=== PATIENT | male | born 1970 | race Caucasian/White ===

== ENCOUNTER 2021-09-04 08:37 | Emergency (ER) | payer MEDICARE, MEDICAID ==
[~2021-09-04] VITALS: Ht 177.8 cm; Wt 87.0 kg
--- NOTE | 2021-09-04 08:45 | ED Lower Extremity ---
General Chief Complaint: Lower Extremity Stated Complaint: RT FOOT INJ Source: patient Exam Limitations: no limitations History of Present Illness Date Seen by Provider: Sep 04, 2021 Time Seen by Provider: 08:41 Initial Comments 50-year-old male with past medical history of CAD with stenting, hypertension, hyperlipidemia, diabetes, CKD coming in due to right big toe pain. Started last night when he was barefoot walking and ran his big toe into a chair leg. I mmediately had severe constant sharp pain. Better with rest and worse with walking on it. Has not taking any medications for it as of yet. He noticed some swelling and so he came in this morning. He is otherwise denying any other acute complaints. Allergies and Home Medications Allergies Coded Allergies: Penicillins (Verified Allergy, Unknown, 09/04/21) acetaminophen (Verified Allergy, Unknown, 09/04/21) hydrocodone (Verified Allergy, Unknown, 09/04/21) sulfamethoxazole (Verified Allergy, Unknown, 09/04/21) tramadol (Verified Allergy, Unknown, 09/04/21) trimethoprim (Verified Allergy, Unknown, 09/04/21) Patient Home Medication List Home Medication List Reviewed: Yes Review of Systems Constitutional: No fever EENTM: No blurred vision Respiratory: No cough, No short of breath Cardiovascular: No chest pain Gastrointestinal: No abdominal pain Genitourinary: no symptoms reported Musculoskeletal: joint pain Skin: no symptoms reported Psychiatric/Neurological: No Symptoms Reported All Other Systems Reviewed Negative Unless Noted: Yes Past Fbdclqv-Hwkcps-Bcwkdd Hx Patient Social History Tobacco Use?: Yes Tobacco type used: Cigarettes Alcohol Use?: Yes Past Medical History Surgeries: Yes Abdominal (Neelima), Cardiac (coronary stents), Gallbladder Coronary Artery Disease, High Cholesterol, Hypertension Stroke Diabetes, Non-Insulin dep Physical Exam Vital Signs Vital Signs - First Documented 09/04/21 08:43 Temp 36.7 Pulse 117 Resp 16 B/P (MAP) 138/103 (115) Pulse Ox 96 O2 Delivery Room Air Capillary Refill : Height, Weight, BMI Height: '" Weight: lbs. oz. kg; BMI Method: General Appearance: WD/WN, no apparent distress HEENT: PERRL/EOMI, normal ENT inspection, pharynx normal Neck: non-tender, full range of motion, supple, normal inspection Cardiovascular: regular rate, rhythm, no edema, no murmur Respiratory: chest non-tender, lungs clear, normal breath sounds, no respiratory distress, no accessory muscle use Gastrointestinal: normal bowel sounds, non tender, soft; No distended, No guarding, No rebound Hips: bilateral hip non-tender, bilateral hip normal inspection, bilateral hip normal range of motion, bilateral hip no evidence of injury Legs: bilateral leg non-tender, bilateral leg normal inspection, bilateral leg normal range of motion, bilateral leg no evidence of injury Knees: bilateral knee non-tender, bilateral knee normal inspection, bilateral knee normal range of motion, bilateral knee no evidence of injury Ankles: bilateral ankle non-tender, bilateral ankle normal inspection, bilateral ankle normal range of motion, bilateral ankle no evidence of injury Feet: left foot non-tender, left foot normal inspection, left foot normal range of motion, left foot no evidence of injury; right foot bone tenderness (maximal tenderness over distal big toe), right foot limited range of motion, right foot pain, right foot soft tissue tenderness, right foot swelling Neurologic/Tendon: normal sensation, normal motor functions Neurologic/Psychiatric: no motor/sensory deficits, alert, normal mood/affect Skin: normal color, warm/dry Lymphatic: no adenopathy Progress/Results/Core Measures Results/Orders My Orders Orders - SAULO RUCKER MD Foot 3 View Right (09/04/21 08:48) Acetaminophen Tablet (Tylenol Tablet) (09/04/21 09:00) Medications Given in ED Current Medications Medications Dose Ordered Sig/Judit Route Start Time Stop Time Status Last Admin Dose Admin Acetaminophen 1,000 mg ONCE ONCE PO 09/04/21 09:00 09/04/21 09:01 09/04/21 08:54 1,000 MG Vital Signs/I&O 09/04/21 08:43 Temp 36.7 Pulse 117 Resp 16 B/P (MAP) 138/103 (115) Pulse Ox 96 O2 Delivery Room Air Progress Progress Note : Progress Note 50-year-old male with above history coming in due to right big toe pain. ABCs were intact and vitals were stable on presentation. Physical exam with some minimal swelling of the distal aspect of the right big toe and tenderness along the distal aspect as well. X-ray ordered to assess for fracture or dislocation. Given Tylenol p.o. for pain control. X-ray interpreted by me showing a fracture of the distal phalanx of the right big toe involving the joint but it is nondisplaced. Given a postop shoe follow- up with orthopedics. He was then discharged home in stable condition with strict return precautions Diagnostic Imaging Diagonstic Imaging: Xray (right foot) Comments X-ray of the right foot ordered and interpreted by me showing a fracture of the distal phalanx of the right big toe involving the joint but is nondisplaced Departure Impression Primary Impression: Fracture of toe Qualified Codes: S92.424A - Nondisplaced fracture of distal phalanx of right great toe, initial encounter for closed fracture Disposition: HOME, SELF-CARE Condition: Stable Departure-Patient Inst. Decision time for Depature: 09:00 Referrals: JAMES GONZALES APRN (PCP) Primary Care Physician [facility] (Family) Primary Care Physician KRISHAN GIL Patient Instructions: Toe Fracture (DC) Add. Discharge Instructions: Your right big toe is broken on the very end near your nail. It is nondisplaced and should heal well. Please follow-up with the orthopedist [facility]. Take Tylenol 1000 mg every 6-8 hours for pain. If you have pain above this you can take the oxycodone. Keep the shoe that we gave you on as this will protect the fracture. Scripts Oxycodone HCl (Oxycodone HCl) 5 Mg Tablet 5 MG PO Q8H PRN for PAIN-SEVERE (8-10) for 3 Days, #9 TAB Prov: SAULO RUCKER MD 09/04/21 SAULO RUCKER MD Sep 04, 2021 08:45
[2021-09-04] MEDS ORDERED: ACETAMINOPHEN 500 MG TAB (TYLENOL) PO ONE (09:00)
[2021-09-04] MEDS ORDERED: OXYC5TAB PO (09:03)
[2021-09-04 09:05] VITALS: BP 138/103
--- NOTE | 2021-09-04 09:12 | Diagnostic Imaging Report ---
EXAM: Right foot radiograph. EXAM DATE: 09/04/2021. COMPARISON: None. HISTORY: Right 1st digit pain after trauma. TECHNIQUE: Three views of the right foot. FINDINGS: There is a nondisplaced fracture along the proximal aspect of the distal 1st digit phalanx that involves the joint space. No other acute fracture, dislocation, or destructive osseous process. The joint spaces are otherwise normal. The soft tissues are normal. IMPRESSION: Nondisplaced fracture of the proximal aspect of the distal 1st digit phalanx. Dictated by: Dictated on workstation # [id number]
== END 2021-09-04 09:05 | disposition home or self-care (01) ==
LOC: ER FS 08:39
DX: S92.424A Nondisplaced fracture of distal phalanx of right great toe, initial encounter for closed fracture (principal); I10 Essential (primary) hypertension; E11.9 Type 2 diabetes mellitus without complications; Z72.0 Tobacco use; Z86.73 Personal history of transient ischemic attack (TIA), and cerebral infarction without residual deficits; W22.8XXA Striking against or struck by other objects, initial encounter
CPT/HCPCS: 73630

== ENCOUNTER 2021-12-24 08:15 | Emergency (ER) | payer MEDICARE, MEDICAID ==
[~2021-12-24] VITALS: Ht 177 cm; Wt 95.0 kg
[~2021-12-24 08:15] MED LIST: OXYC5TAB PO
[2021-12-24 08:30] VITALS: BP 146/86
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
--- NOTE | 2021-12-24 08:56 | Diagnostic Imaging Report ---
INDICATION: Pain. COMPARISON: Imaging of the left foot from this same date. TECHNIQUE: Three radiographs of the left ankle dated 12/24/2021. FINDINGS: No acute fracture or dislocation. No destructive osseous process. The talar dome is unremarkable. The ankle mortise is symmetric. No suspicious radiopaque foreign body. IMPRESSION: No acute osseous abnormality. Dictated by: Dictated on workstation # [id number]
--- NOTE | 2021-12-24 09:13 | Diagnostic Imaging Report ---
Pelvis and left hip at 8:40 INDICATION: Injury, hip pain. Single AP view of the pelvis and AP and lateral views of the left hip were obtained. There are no prior studies for comparison. There is no fracture, dislocation or acute bony abnormality identified. There is a linear lucency extending through the lateral aspect of the left acetabulum. There may be a similar-appearing linear lucency on the right and consequently this finding may merely be secondary to superimposition and not to a fracture. Even so, if clinical concern regarding an acute bony abnormality persists, then CT would be recommended for further study. There is only mild degenerative disease of the hip and sacroiliac joints. The soft tissues are unremarkable. IMPRESSION: 1. The linear lucency overlying the lateral aspect of the left acetabulum may merely be secondary to superimposition as opposed to a nondisplaced fracture. Recommendations as above. 2. There is no acute bony abnormality noted otherwise. Dictated by: Dictated on workstation # [id number]
--- NOTE | 2021-12-24 09:14 | Diagnostic Imaging Report ---
Left foot at 8:50. Indication: Injury, foot pain. 3 views were obtained. There are no prior studies available for comparison. There is no fracture, dislocation or acute bony abnormality evident. The Lisfranc joint seems well maintained. There is no evidence for a calcaneal spur. The soft tissues are unremarkable. Impression: There is no evidence for an acute bony abnormality. Dictated by: Dictated on workstation # [id number]
[2021-12-24] MEDS ORDERED: oxyCODONE/APAP 5/325MG (PERCOCET 5) TABLET PO STA (09:36)
[2021-12-24] MEDS ORDERED: OXYC1TAB11 PO (09:40)
== END 2021-12-24 09:45 | disposition home or self-care (01) ==
LOC: EDUNIT# 08:15 → ER FS 08:17
DX: S93.402A Sprain of unspecified ligament of left ankle, initial encounter (principal); S70.02XA Contusion of left hip, initial encounter; F17.210 Nicotine dependence, cigarettes, uncomplicated; V86.55XA Driver of 3- or 4- wheeled all-terrain vehicle (ATV) injured in nontraffic accident, initial encounter
CPT/HCPCS: 73502; 73610; 73630

== ENCOUNTER 2022-02-25 06:04 | Emergency (ER) | payer MEDICARE, MEDICAID ==
[~2022-02-25] VITALS: Ht 177.8 cm; Wt 90.9 kg
[~2022-02-25 06:04] MED LIST changes: +OXYC1TAB11 PO
[2022-02-25] MEDS ORDERED: KETOROLAC 15 MG/ML VIAL IVP ONE (06:30)
[2022-02-25] MEDS ORDERED: CYCLOBENZAPRINE 10 MG (FLEXERIL) TAB PO STA (06:33)
[2022-02-25] MEDS ORDERED: EMPA25TA (06:42)
[2022-02-25] MEDS ORDERED: OMEP20CA18 (06:42)
[2022-02-25] MEDS ORDERED: AMLO-250 (06:42)
[2022-02-25] MEDS ORDERED: HYDR-3923 (06:42)
[2022-02-25] MEDS ORDERED: VALS80TA31 (06:42)
[2022-02-25] MEDS ORDERED: GABAPENTIN 100 MG (NEURONTIN) CAP PO ONE (06:45)
--- NOTE | 2022-02-25 06:49 | ED Back Pain ---
General Chief Complaint: Back Problems Stated Complaint: LOWER BACK PAIN Nursing Triage Note: Patient arrival to ED via POV and assisted with a wheelchair to ED Overflow room. Patient c/o severe low back pain since 1900 last night leaving him to sleep on a screened in porch for the night. Patient has hx low back pain chronically and used to get shots in back prior to moving to [place]. Pt reports now he has C5-6 issues to see Johan Harris for in . Tried Aleve and "old pain pill I had". Source of Information: Patient Exam Limitations: No Limitations History of Present Illness Date Seen by Provider: February 25, 2022 Time Seen by Provider: 06:15 Initial Comments 51-year-old male with past medical history of diabetes, hypertension, chronic back pain that sees pain management coming in due to low back pain. He was spra joce stuff in the lawn, dropped a 20 gallon bucket off of his 4 [address], tried to pick it up and felt a strain in his left lower back. Has had constant sharp pain in his left lower back since then. Better when he is sitting, worse with walking. Took hydrocodone with Tylenol last night which helped somewhat. He follows with pain management and gets intermittent spinal injections. He is overdue for 1 and says he is going to call them soon. He is otherwise denying any new numbness, weakness, bowel or bladder issues, rash, chest pain, shortness of breath, dysuria, or any other concerns. Allergies and Home Medications Allergies Coded Allergies: Penicillins (Verified Allergy, Unknown, 09/04/21) acetaminophen (Verified Allergy, Unknown, 09/04/21) hydrocodone (Verified Allergy, Unknown, 09/04/21) sulfamethoxazole (Verified Allergy, Unknown, 09/04/21) tramadol (Verified Allergy, Unknown, 09/04/21) trimethoprim (Verified Allergy, Unknown, 09/04/21) Patient Home Medication List Home Medication List Reviewed: Yes Amlodipine Besylate (Amlodipine Besylate) 5 Mg Tablet, (Reported) Entered as Reported by: MEREDITH SHEARER on 02/25/22 0642 Last Action: New Order Cyclobenzaprine HCl (Cyclobenzaprine HCl) 10 Mg Tablet, 10 MG PO BID PRN for SPASMS Prescribed by: SAULO RUCKER on 02/25/22651 Empagliflozin (Jardiance) 25 Mg Tablet, (Reported) Entered as Reported by: MEREDITH SHEARER on 02/25/22641 Last Action: New Order Gabapentin (Gabapentin) 100 Mg Capsule, 100 MG PO Q8H Prescribed by: SAULO RUCKER on 02/25/22651 Hydralazine HCl (Hydralazine HCl) 25 Mg Tablet, (Reported) Entered as Reported by: MEREDITH SHEARER on 02/25/22641 Last Action: New Order Lidocaine (Lidocaine 5% Patch) 5 % Adh..patch, 1 EACH TP Q12H PRN for Neuropathic pain Prescribed by: SAULO RUCKER on 02/25/22651 Omeprazole (Omeprazole) 20 Mg Capsule., (Reported) Entered as Reported by: MEREDITH SHEARER on 02/25/22641 Last Action: New Order Valsartan (Valsartan) 80 Mg Tablet, (Reported) Entered as Reported by: MEREDITH SHEARER on 02/25/22641 Last Action: New Order Discontinued Medications Oxycodone HCl (Oxycodone HCl) 5 Mg Tablet, 5 MG PO Q8H PRN for PAIN-SEVERE (8- 10) Discontinued Reason: Referral/FU Appt-Addtl Prescribed by: SAULO RUCKER on 09/04/21902 Last Action: Discontinued Oxycodone HCl/Acetaminophen (Oxycodone-Acetaminophen 5-325) 1 Each Tablet, 1 EACH PO Q6H PRN for PAIN-SEVERE (8-10) Discontinued Reason: Referral/FU Appt-Addtl Prescribed by: DHARA TELLES on 12/24/21940 Last Action: Discontinued Review of Systems Constitutional: No chills, No fever EENTM: No blurred vision Respiratory: No cough Cardiovascular: No chest pain Gastrointestinal: No abdominal pain Genitourinary: no symptoms reported Musculoskeletal: back pain Skin: no symptoms reported Psychiatric/Neurological: No Symptoms Reported All Other Systems Reviewed Negative Unless Noted: Yes Past Pdjieyq-Hpabun-Wkqqhb Hx Patient Social History Tobacco Use?: Yes Tobacco type used: Cigarettes Smoking Status: Current Everyday Smoker Smokeless Tobacco Frequency: Never a User Use of E-Cig and/or Vaping Faustino: Never a User Substance use?: No Additional substance use comme: Patient reports hx of polysubstance abuse prior to 25 yrs ago Alcohol Use?: Yes Alcohol type: Hard Liquor Alcohol Frequency: Couple times a week Pt feels they are or have been: No Immunizations Up To Date First/Initial COVID19 Vaccinat: DECEMBER 2020 Second COVID19 Vaccination Mil: JANUARY 2021 Third COVID19 Vaccination Date: AUGUST 2021 Past Medical History Surgery/Hospitalization HX: Coronary artery disease with stents, hypertension, hyperlipidemia,diabetes, chronic kidney disease, cholecystectomy, chronic back neck and back pain Surgeries: Yes Abdominal, Cardiac, Gallbladder, Orthopedic Respiratory: No Cardiac: Yes Coronary Artery Disease, High Cholesterol, Hypertension Neurological: No Stroke Genitourinary: Yes (Chronic kidney disease) Gastrointestinal: Yes Gall Bladder Disease Musculoskeletal: Yes Arthritis Endocrine: Yes Diabetes, Non-Insulin dep Physical Exam Vital Signs Vital Signs - First Documented 02/25/22 06:10 Temp 37.2 Pulse 126 Resp 20 B/P (MAP) 148/85 (106) Pulse Ox 96 O2 Delivery Room Air Capillary Refill : Less Than 3 Seconds Height, Weight, BMI Height: '" Weight: lbs. oz. kg; 28.00 BMI Method: General Appearance: No Apparent Distress, WD/WN HEENT: PERRL/EOMI, Normal ENT Inspection, Pharynx Normal Neck: Full Range of Motion, Normal Inspection, Non Tender, Supple Cardiovascular: Regular Rate, Rhythm, No Edema, Normal Peripheral Pulses Respiratory: Chest Non Tender, Lungs Clear, Normal Breath Sounds, No Accessory Muscle Use, No Respiratory Distress Gastrointestinal: Normal Bowel Sounds, Non Tender, Soft; No Distended, No Guarding Back: Normal Inspection, No CVA Tenderness, No Vertebral Tenderness, Other (Paravertebral tenderness on the left radiating down the left leg, positive straight leg test, negative reverse straight leg test, 5 out of 5 strength with hip flexion, knee flexion and extension, foot dorsiflexion and plantarflexion, normal distal sensation and capillary refill and pulses, 2+ reflex patellar) Extremity: Normal Capillary Refill, Normal Inspection, Normal Range of Motion, Non Tender, No Calf Tenderness, No Pedal Edema Neurologic/Psychiatric: Alert, No Motor/Sensory Deficits, Normal Mood/Affect, Other (Antalgic gait) Skin: Normal Color, Warm/Dry Lymphatic: No Adenopathy Progress/Results/Core Measures Results/Orders My Orders Orders - SAULO RUCKER MD Ketorolac Injection (Toradol Injection) (02/25/22 06:30) Gabapentin Capsule/Tablet (Neurontin Cap (02/25/22 06:45) Cyclobenzaprine Tablet (Flexeril Tablet) (02/25/22 06:33) Medications Given in ED Current Medications Medications Dose Ordered Sig/Judit Route Start Time Stop Time Status Last Admin Dose Admin Ketorolac Tromethamine 15 mg ONCE ONCE IVP 02/25/22 06:30 02/25/22 06:31 DC 02/25/22 06:47 15 MG Vital Signs/I&O 02/25/22 02/25/22 06:10 06:47 Temp 37.2 37.2 Pulse 126 Resp 20 B/P (MAP) 148/85 (106) Pulse Ox 96 O2 Delivery Room Air Blood Pressure Mean: 106 Progress Progress Note : Progress Note 51-year-old male with above history coming in due to atraumatic low back pain. ABCs were intact and vitals were stable on presentation. He has no red flags including no trauma, no midline tenderness, no weakness or numbness, normal bowel and bladder function, and he also states this is typical of a back strain for him. He be treated symptomatically, and in the absence of any trauma we will avoid an x-ray today. He says he has a pain management appointment coming up he can have follow-up quickly. I believe he stable for discharge with outpatient follow-up. He was sent home with strict return precautions Departure Impression Primary Impression: Low back strain Qualified Codes: S39.012A - Strain of muscle, fascia and tendon of lower back, initial encounter Disposition: 01 HOME, SELF-CARE Condition: Stable Departure-Patient Inst. Decision time for Depature: 06:55 Referrals: JAMES GONZALES APRN (PCP) Primary Care Physician [facility] (Family) Primary Care Physician Patient Instructions: Low Back Pain ED Add. Discharge Instructions: I would follow-up with your pain management physician to discuss an injection sooner. If you feel like you need stronger pain medicine such as hydrocodone or oxycodone, it would need to go through your pain management physician as well, we typically are unable to give that through the emergency department. You can also take [id number] Tylenol 1000 mg every 6 hours. This is safe on your stomach. I have sent a few different prescriptions to your pharmacy to help with your pain. Try to get up and do some gentle stretching and movement. Scripts Lidocaine (Lidocaine 5% Patch) 5 % Adh..patch 1 EACH TP Q12H PRN for Neuropathic pain MDD 2 for 14 Days, #28 PATCH 2 patches max for 12 hours, then 12 hours patch-free period. Prov: SAULO RUCKER MD 02/25/22 Cyclobenzaprine HCl (Cyclobenzaprine HCl) 10 Mg Tablet 10 MG PO BID PRN for SPASMS for 5 Days, #10 TAB Prov: SAULO RUCKER MD 02/25/22 Gabapentin (Gabapentin) 100 Mg Capsule 100 MG PO Q8H for Neuropathic pain for 10 Days, #30 CAP Prov: SAULO RUCKER MD 02/25/22 SAULO RUCKER MD February 25, 2022 06:49
[2022-02-25] MEDS ORDERED: LIDO700A45 TP (06:52)
[2022-02-25] MEDS ORDERED: CYCL10TA25 PO (06:52)
[2022-02-25] MEDS ORDERED: GABA-486 PO (06:52)
[2022-02-25 06:53] VITALS: BP 148/85
== END 2022-02-25 06:53 | disposition home or self-care (01) ==
LOC: EDUNIT# 06:04 → ER FS 06:07
DX: S39.012A Strain of muscle, fascia and tendon of lower back, initial encounter (principal); F17.210 Nicotine dependence, cigarettes, uncomplicated; X50.1XXA Overexertion from prolonged static or awkward postures, initial encounter
CPT/HCPCS: 99284

== ENCOUNTER 2022-02-27 16:26 | Emergency (ER) | payer MEDICARE, MEDICAID ==
[~2022-02-27] VITALS: Ht 177 cm; Wt 87.0 kg
[~2022-02-27 16:26] MED LIST changes: +AMLO-250; +CYCL10TA25 PO; +EMPA25TA; +GABA-486 PO; +HYDR-3923; +LIDO700A45 TP; +OMEP20CA18; +VALS80TA31
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
[2022-02-27 17:17] VITALS: BP 149/103
== END 2022-02-27 17:18 | disposition home or self-care (01) ==
LOC: EDUNIT# 16:26 → ER FS 16:27
DX: S70.02XA Contusion of left hip, initial encounter (principal); V86.05XA Driver of 3- or 4- wheeled all-terrain vehicle (ATV) injured in traffic accident, initial encounter
CPT/HCPCS: 73502

== ENCOUNTER 2022-06-28 08:24 | Emergency (ER) | payer MEDICARE, MEDICAID ==
[~2022-06-28] VITALS: Ht 177.8 cm; Wt 95.4 kg
[2022-06-28] MEDS ORDERED: DOXYCYCLINE 100 MG (VIBRAMYCIN) TABLET PO STA (08:43)
[2022-06-28] MEDS ORDERED: CEPHALEXIN 250 MG (KEFLEX) CAP PO STA (08:43)
--- NOTE | 2022-06-28 08:50 | ED Integumentary General ---
General Chief Complaint: Skin/Wound Problems Stated Complaint: RT FINGER INFECTION Source: patient Exam Limitations: no limitations History of Present Illness Date Seen by Provider: Jun 28, 2022 Time Seen by Provider: 08:26 Initial Comments 51-year-old man [id number] with past medical history of hypertension, diabetes, CKD coming in due to concerns for a finger infection. He was using his pocket knife on Thursday when it snapped shut by the spring and hit his right middle finger on the extensor surface causing a cut. Blood quite a bit, but he was able to stop when he with pressure. He has been putting Neosporin on it, but noticed on Thursday morning that it was slightly red and more painful. Today he noticed the redness was spreading and the pain was going up his hand more. He has not taken anything for the pain as of yet. Has not been on any antibiotics and has not seen any other provider for it as of yet. Is otherwise denying any fever, drainage or pus coming from it, weakness, numbness, or any other concerns. Of note, he has a penicillin allergy, but tolerates Keflex. Allergies and Home Medications Allergies Coded Allergies: Penicillins (Verified Allergy, Unknown, 09/04/21) acetaminophen (Verified Allergy, Unknown, 09/04/21) hydrocodone (Verified Allergy, Unknown, 09/04/21) sulfamethoxazole (Verified Allergy, Unknown, 09/04/21) tramadol (Verified Allergy, Unknown, 09/04/21) trimethoprim (Verified Allergy, Unknown, 09/04/21) Patient Home Medication List Home Medication List Reviewed: Yes Amlodipine Besylate (Amlodipine Besylate) 5 Mg Tablet, (Reported) Entered as Reported by: MEREDITH SHEARER on 02/25/22641 Cyclobenzaprine HCl (Cyclobenzaprine HCl) 10 Mg Tablet, 10 MG PO BID PRN for SPASMS Prescribed by: SAULO RUCKER on 02/25/22651 Empagliflozin (Jardiance) 25 Mg Tablet, (Reported) Entered as Reported by: MEREDITH SHEARER on 02/25/22641 Gabapentin (Gabapentin) 100 Mg Capsule, 100 MG PO Q8H Prescribed by: SAULO RUCKER on 02/25/22651 Hydralazine HCl (Hydralazine HCl) 25 Mg Tablet, (Reported) Entered as Reported by: MEREDITH SHEARER on 02/25/22641 Lidocaine (Lidocaine 5% Patch) 5 % Adh..patch, 1 EACH TP Q12H PRN for Neuropathic pain Prescribed by: SAULO RUCKER on 02/25/22651 Omeprazole (Omeprazole) 20 Mg Capsule., (Reported) Entered as Reported by: MEREDITH SHEARER on 02/25/22641 Valsartan (Valsartan) 80 Mg Tablet, (Reported) Entered as Reported by: MEREDITH SHEAERR on 02/25/22641 Review of Systems Review of Systems Constitutional: No fever EENTM: No blurred vision Respiratory: No cough Cardiovascular: No chest pain Gastrointestinal: No abdominal pain Genitourinary: no symptoms reported Musculoskeletal: see HPI Skin: see HPI Psychiatric/Neurological: No Symptoms Reported Endocrine: No Symptoms Reported Hematologic/Lymphatic: No Symptoms Reported All Other Systems Reviewed Negative Unless Noted: Yes Past Bqkayec-Zuyvte-Hcclgi Hx Patient Social History Tobacco Use?: Yes Tobacco type used: Cigarettes Smoking Status: Current Everyday Smoker Use of E-Cig and/or Vaping dev: No Substance use?: No Alcohol Use?: Yes Alcohol type: Hard Liquor Alcohol Frequency: Couple times a week Pt feels they are or have been: No Immunizations Up To Date First/Initial COVID19 Vaccinat: DECEMBER 2020 Second COVID19 Vaccination Mil: JANUARY 2021 Third COVID19 Vaccination Date: AUGUST 2021 Past Medical History Surgery/Hospitalization HX: Coronary artery disease with stents, hypertension, hyperlipidemia,diabetes, chronic kidney disease, cholecystectomy, chronic back neck and back pain; Achilles tendon repair left. Colon resection; Colon CA; Rhinoplasty; Hernia repair; DDD; COPD Surgeries: Yes Abdominal, Cardiac, Gallbladder, Orthopedic Respiratory: No Cardiac: Yes Coronary Artery Disease, High Cholesterol, Hypertension Neurological: No Stroke Genitourinary: Yes (Chronic kidney disease) Gastrointestinal: Yes Gall Bladder Disease Musculoskeletal: Yes Arthritis Endocrine: Yes Diabetes, Non-Insulin dep Physical Exam Vital Signs Capillary Refill : General Appearance: WD/WN, no apparent distress HEENT: PERRL/EOMI, normal ENT inspection, pharynx normal Neck: non-tender, full range of motion, supple, normal inspection Cardiovascular: regular rate, rhythm, no edema, no murmur Respiratory: chest non-tender, lungs clear, normal breath sounds, no respiratory distress, no accessory muscle use Gastrointestinal: normal bowel sounds, non tender, soft; No distended, No guarding, No rebound Back: normal inspection Extremities: normal range of motion, no pedal edema, no calf tenderness, normal capillary refill, other (Small healing half centimeter laceration just proximal to the DIP joint of the right middle finger. There is some erythema and mild swelling spreading just up the hand and what appears to be a linear fashion. No drainage noted. He has full ability to extend his finger with no obvious tendon damage. Normal sensation and capillary refill as well. No issues on the flexor side of the hand. He has mild pain with passive flexion of the middle finger) Neurologic/Psychiatric: no motor/sensory deficits, alert, normal mood/affect Skin: normal color, warm/dry, rash Lymphatic: no adenopathy Progress/Results/Core Measures Progress Progress Note : Progress Note 51-year-old male with above history coming in due to concerns for an infection in his right middle finger. ABCs were intact and vitals were stable on presentation. He clearly does have cellulitic changes going up his finger from the open wound. His tetanus is up-to-date. Physical exam otherwise reassuring including intact tendons and normal neurovascular exam. We will start him on antibiotics, and I discussed with him if things are not improving or even worsening by Thursday around lunchtime he should immediately present to an ER to likely receive IV antibiotics given him being high risk and diabetic. Departure Impression Primary Impression: Finger laceration with complication Qualified Codes: S61.219A - Laceration without foreign body of unspecified finger without damage to nail, initial encounter Additional Impression: Cellulitis Qualified Codes: L03.011 - Cellulitis of right finger Disposition: 01 HOME, SELF-CARE Condition: Stable Departure-Patient Inst. Decision time for Depature: 08:49 Referrals: JAMES GONZALES APRN (PCP) Primary Care Physician [facility] (Family) Primary Care Physician Patient Instructions: Cellulitis (Skin Infection), Adult ED Add. Discharge Instructions: The skin is infected and it does appear to be spreading along that tendon sheath. He will be on 2 different antibiotics for the next 10 days. Take Tylenol as needed for pain. If you are not starting to see some improvement by Thursday around lunchtime or if it is significantly worse with the redness spreading further, a lot of drainage such as pus, or new fever, then I would want you to present to an emergency department for reevaluation and potential IV antibiotics. Scripts Cephalexin (Cephalexin) 500 Mg Tablet 500 MG PO QID for 10 Days, #40 TAB Prov: SAULO RUCKER MD 06/28/22 Doxycycline Hyclate (Doxycycline Hyclate) 100 Mg Tablet 100 MG PO BID for 10 Days, #20 TAB 0 Refills Prov: SAULO RUCKER MD 06/28/22 Work/School Note: Work Release Form Date Seen in the Emergency Department: Jun 28, 2022 Return to Work: Jun 30, 2022 SAULO RUCKER MD Jun 28, 2022 08:50
[2022-06-28 08:51] VITALS: BP 142/100
[2022-06-28] MEDS ORDERED: CEPH500T PO (08:51)
[2022-06-28] MEDS ORDERED: DOXY100T2 PO (08:51)
== END 2022-06-28 08:53 | disposition home or self-care (01) ==
LOC: EDUNIT# 08:24 → ER FS 08:26
DX: S61.212A Laceration without foreign body of right middle finger without damage to nail, initial encounter (principal); L03.011 Cellulitis of right finger; F17.210 Nicotine dependence, cigarettes, uncomplicated; X58.XXXA Exposure to other specified factors, initial encounter
CPT/HCPCS: 99283